=== PATIENT | male | born 1990 | race Caucasian/White ===

== ENCOUNTER 2022-12-12 22:20 | Emergency (ER) | payer BC, MEDICAID ==
[2022-12-12] MEDS ORDERED: Sodium Chloride 0.9% 10 ML Syringe FLUSH PRN (22:37)
[2022-12-12] MEDS: Lidocaine/Epineph/Tetracaine 3 ML Syringe ONE (23:14)
[2022-12-13 00:03] VITALS: BP 102/66; PULSE 67
[2022-12-13] MEDS: Lidocaine/Epineph/Tetracaine 3 ML Syringe TOP ONE (00:05)
[2022-12-13] MEDS ORDERED: Bacitracin/Neomycin/Polymyxin B Oint 0.9 GM U/D Packet TOP ONE (00:19)
[2022-12-13] MEDS: Sodium Chloride 0.9% 0 ML ONE (00:56)
== END 2022-12-13 00:35 | disposition home or self-care (01) ==
LOC: KA.ED 22:20 → SUPCPDRO 22:20 → KA.ED 12-13 00:35
DX: S01.01XA Laceration without foreign body of scalp, initial encounter (principal); R55 Syncope and collapse; Z88.5 Allergy status to narcotic agent; Z88.0 Allergy status to penicillin; W18.30XA Fall on same level, unspecified, initial encounter; W22.8XXA Striking against or struck by other objects, initial encounter; Y93.64 Activity, baseball; Y92.009 Unspecified place in unspecified non-institutional (private) residence as the place of occurrence of the external cause
CPT/HCPCS: 12001; 70450; 82947; 93010; 99284; A9270-GY